=== PATIENT | female | born 1965 | race Caucasian/White ===

== ENCOUNTER 2017-10-23 14:30 | Emergency (ER) | payer OTHER ==
[2017-10-23 15:14] VITALS: BP 121/67; PULSE 90; TEMP 98.5; BMI 49.2
--- NOTE | 2017-10-23 15:29 | PDOC ---
History of Present Illness - General Chief Complaint: Abscess Boil Stated Complaint: RT ARM PAIN Time Seen by Provider: 10/23/17 15:18 History Source: Patient Exam Limitations: No Limitations - History of Present Illness Initial Comments: CHIEF COMPLAINT: 52 y/o afebrile female with no significant PMH c/o pain and swelling to right underarm x 1 week. HISTORY OF PRESENT ILLNESS: The patient states she shaved her armpits prior to the swelling and pain. She has been applying hot compresses and taking ibuprofen for her symptoms. SHe denies fever, streaking drainage from wound. Past History - Past Medical History Allergies/Adverse Reactions: Allergies Allergy/AdvReac Type Severity Reaction Status Date / Time No Known Allergies Allergy Verified 10/23/17 15:13 Home Medications: Ambulatory Orders Cephalexin Monohydrate [Keflex -] 500 mg PO Q8H #24 capsule 10/23/17 Sulfamethoxazole/Trimethoprim [Bactrim Ds -] 1 tab PO BID #20 tablet 10/23/17 Asthma: Yes COPD: No - Surgical History Cholecystectomy: Yes GI Surgery: Yes (GASTRIC BYPASS) - Family Disease History Family Disease History: Diabetes: Father, Mother - Suicide/Smoking/Psychosocial Hx Smoking History: Never smoked Hx Alcohol Use: No Substance Use Type: None Review of Systems - Review of Systems Able to Perform ROS?: Yes Constitutional: No: Chills, Fever HEENTM: No: Symptoms Reported Respiratory: No: Symptoms reported Cardiac (ROS): No: Symptoms Reported Integumentary: Yes: Erythema, Lumps, Other (pain) Neurological: No: Symptoms reported *Physical Exam - Vital Signs Last Vital Signs Temp Pulse Resp BP Pulse Ox 98.5 F 90 18 121/67 98 10/23/17 15:11 10/23/17 15:11 10/23/17 15:11 10/23/17 15:11 10/23/17 15:11 - Physical Exam Comments: Morbidly obese, ambulatory female in NAD. General Appearance: Yes: Nourished, Appropriately Dressed. No: Apparent Distress HEENT: positive: EOMI, PERCY Musculoskeletal: positive: Decreased Range of Motion, Muscle Spasm Extremity: positive: Normal Range of Motion, Swelling (right axilla) Integumentary: positive: Erythema, Swelling, Other (6cm long raised area of erythema to right axilla that is very TTP. another raised, erythematous region that is 1cm long. both areas are non fluctuant. No discharge.) Neurologic: positive: access spec II-XII NML intact, Fully Oriented, Alert, Normal Mood/ Affect Medical Decision Making - Medical Decision Making A/P: 52 y/o afebrile female with abscess to right axilla. No fluctuance. Will discharge to home with rx for keflex and bactrim. Instructed her to continue with hot compresses, take antibiotics as prescribed, take 600mg of ibuprofen every 6 hours for pain and return to the ER with any worsening or concerning symptoms. *DC/Admit/Observation/Transfer Diagnosis at time of Disposition: Abscess of arm, right - Discharge Dispostion Disposition: HOME Condition at time of disposition: Good - Referrals - Patient Instructions Printed Discharge Instructions: DI for Skin Abscess Additional Instructions: Discharge INstructions: -Continue applying hot compresses multiple times per day -2 prescriptions for antibiotics have been sent to your pharmacy; please take as prescribed -Take 600mg of ibuprofen every 6 hours with food for pain -Return to the ER with any worsening or concerning symptoms - Post Discharge Activity
== END 2017-10-23 15:35 | disposition home or self-care (01) ==
LOC: JER 14:30 → JERFT 14:30
DX: L02.411 Cutaneous abscess of right axilla (principal)
CPT/HCPCS: 99281-25

== ENCOUNTER 2017-11-05 09:37 | Observation (INO) | payer OTHER ==
[2017-11-05 09:55] VITALS: BMI 48.0
--- NOTE | 2017-11-05 10:23 | PDOC ---
History of Present Illness - General Chief Complaint: Chest Pain Stated Complaint: CHEST PAIN Time Seen by Provider: 11/05/17 09:55 History Source: Patient Exam Limitations: No Limitations - History of Present Illness Initial Comments: 11/05/17 10:17 52 yo obese (48 BMI) female, PMH of asthma and recent right arm abscess, currently taking antibiotics presents to ED for a 4 day history of chest pain. No previous cardiac workup, no history of DVT/PE. Patient states for the past 4 nights she has had intermittent chest pain which subsides after sitting up for 1 hour in bed but this morning the pain has not subsided. Pain is described as tightness with associated left arm numbness and SOB with the pain. Pt denies exertional chest pain, back pain, n/v/f/c abdominal pain or changes in bowel or bladder habits. Past History - Past Medical History Allergies/Adverse Reactions: Allergies Allergy/AdvReac Type Severity Reaction Status Date / Time No Known Allergies Allergy Verified 11/05/17 09:50 Home Medications: Ambulatory Orders Cephalexin Monohydrate [Keflex -] 500 mg PO Q8H #24 capsule 10/23/17 Sulfamethoxazole/Trimethoprim [Bactrim Ds -] 1 tab PO BID #20 tablet 10/23/17 Albuterol Sulfate Inhaler - [Ventolin Hfa Inhaler -] 1 - 2 inh PO PRN 11/05/17 Asthma: Yes COPD: No - Surgical History Cholecystectomy: Yes GI Surgery: Yes (GASTRIC BYPASS) - Family Disease History Family Disease History: Diabetes: Father, Mother - Immunization History Immunization Up to Date: Yes - Suicide/Smoking/Psychosocial Hx Smoking History: Never smoked Have you smoked in the past 12 months: No Information on smoking cessation initiated: No Hx Alcohol Use: No Drug/Substance Use Hx: No Substance Use Type: None Review of Systems - Review of Systems Able to Perform ROS?: Yes Constitutional: No: Chills, Diaphoresis, Fever, Weakness *Physical Exam - Vital Signs Last Vital Signs Temp Pulse Resp BP Pulse Ox 98.0 F 77 17 153/82 96 11/05/17 09:51 11/05/17 09:51 11/05/17 09:51 11/05/17 09:51 11/05/17 09:51 Heart Score/ECG Review - History History: Highly suspicious - Age Age: 45-65 - Risk Factors Risk Factors Heart Score: No Hx Hypercholesterolemia, No Hx Hypertension, No Hx Diabetes, No Smoking History, Yes Positive family hx of cardiac disease, Yes Hx Obesity Medical Decision Making - Medical Decision Making 52 yo obese female with a positive family history of atherosclerotic disease presents to ED for 4 days of intermittent CP and SOB. Pain is described as tightness and has associated left arm numbness. Exam positive for bilateral lower leg swelling and pitting of the left lower leg. DDx includes but is not limited to: ACS, PE, Pnemo. CBC, CMP, cardiac profile, EKG, CXR, and left leg ultrasound ordered Given 161 of aspirin 11/05/17 10:35 heart score of 4 currently due to high suspicion, obesity, family hx and age. reassess after EKG and trops are done 11/05/17 10:50 Pt resting comfortably and pain is decreasing. Plan to admit to Tele obs 11/05/17 11:11 11/05/17 11:32 *DC/Admit/Observation/Transfer Diagnosis at time of Disposition: Chest pain Qualifiers: Chest pain type: unspecified Qualified Code(s): R07.9 - Chest pain, unspecified - Discharge Dispostion Condition at time of disposition: Stable Decision to Admit order: Yes - Referrals - Patient Instructions - Post Discharge Activity
[2017-11-05 10:40] LABS: BASO % 0.8 % (0-2.0); EOS % 4.4 % (0-4.5); HEMATOCRIT 36.5 % (32.4-45.2); HEMOGLOBIN 11.6 GM/dL (10.7-15.3); LYMPH % 22.7 % (8-40); MCH 22.6 pg (25.7-33.7); MCHC 31.8 g/dl (32.0-36.0); MEAN PLT VOLUME 10.3 fl (7.5-11.1); NEUT % 67.1 % (42.8-82.8); PLATELET COUNT 201 K/MM3 (134-434); RBC 5.14 M/mm3 (3.60-5.2); RDW 19.3 % (11.6-15.6); WHITE BLOOD COUNT 6.5 K/mm3 (4.0-10.0)
--- NOTE | 2017-11-05 10:43 | PDOC ---
Attending Attestation - Resident Resident Name: ChikisCedric - ED Attending Attestation I have performed the following: I have examined & evaluated the patient, The case was reviewed & discussed with the resident, I agree w/resident's findings & plan, Exceptions are as noted - Physicial Exam PE: 11/05/17 10:41 awake alert NAD. lungs clear bilaterally. heart rrr no mrg. abd soft obese nontender. ext wwp. bilaterally edema. left greater than right. pitting on left. nuero alert oriented x 3. skin warm and dry. right axilla small indurated area 1. x 1 cm. no overlying erythema. no fluctuance. - Medical Decision Making 11/05/17 10:42 differential diagnosis angina, acs. gerd from abx use. dvt considered. will repeat us pt has had in past of left leg. labs cbc cmp cardiac. ekg. asa. <Samia Alexander - Last Filed: 11/05/17 11:31> - HPI HPI: 11/05/17 10:55 The patient is a 52 year old female with a past medical history of recent right arm abscess and asthma who presents to the emergency department for evaluation of a 4 day history of chest pain and shortness of breath. 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 She describes the chest pain as a pressure-like sensation, intermittent, localized to the left side. Pt states her chest tightness is usually alleviated by sitting up, but notes this episode lasted more than an hour prompting her to visit the emergency department for further evaluation. The patient reports associated symptoms of left side paresthesia radiating to the hand and left leg edema. Pt reports a history of bilateral lower extremity edema. Of note, the patient has an extensive family cardiac history. The patient denies history of PE or DVT, previous cardiac workup, history of blood clots, headaches, and dizziness. Denies F/C, N/V, and any bowel/urinary symptoms. Allergies: NKDA Family History: Mother had 2 aortic valve replacements, uncle had quadruple bypass, and the grandmother passed in her 50s secondary to an AMI. Social History: No reported alcohol, cigarette, or drug use. Surgical History: gastric bypass, cholecystectomy PCP: Dr. Eugenie Singh ([phone]) <Terell Roche - Last Filed: 11/05/17 11:47> Heart Score/ECG Review #1 General ECG Interpretation: Sinus Rhythm, Normal Rate (77), Normal Intervals, No acute ischemic changes <Samia Alexander - Last Filed: 11/05/17 11:31> Attestations - Attestations Documentation prepared by Terell Roche, acting as medical laboratory manager for Samia Alexander MD. <Terell Roche - Last Filed: 11/05/17 11:47>
[2017-11-05] MEDS ORDERED: ASPIRIN 81 MG CHEWABLE TABLETS ONE (11:06)
[2017-11-05 11:11] LABS: ALBUMIN 3.3 g/dl (3.4-5.0); ANION GAP 5 (8-16); BILIRUBIN,TOTAL 0.3 mg/dL (0.2-1.0); BLOOD UREA NITROGEN 9 mg/dL (7-18); CALCIUM 8.7 mg/dL (8.5-10.1); CHLORIDE 105 mmol/L (98-107); CO2 30 mmol/L (21-32); CREATININE 0.7 mg/dL (0.55-1.02); GLUCOSE,RANDOM 88 mg/dL (74-106); POTASSIUM 4.9 mmol/L (3.5-5.1); SGOT/AST 23 U/L (15-37); SGPT/ALT 25 U/L (12-78); SODIUM 140 mmol/L (136-145)
[2017-11-05 11:14] LABS: ALK PHOS 114 U/L (45-117)
[2017-11-05] MEDS: ASPIRIN 81 MG CHEWABLE TABLETS PO SCH (11:22)
--- NOTE | 2017-11-05 12:51 | HP ---
CHIEF COMPLAINT: chest pain PCP: Dr. Singh HISTORY OF PRESENT ILLNESS: This is a 52 year old female with PMHx of asthma who presented to the ED with 4 days of chest pain. The patient reports that 4 days ago in the middle of the night she was woken up with left sided, non-radiating chest pain which she describes as someone hugging her tightly. She states it didn't last long and then it happened again the next few nights. She reports this morning at 2am the pain work up her and it lasted longer than usual which prompted her to come to the ED. She denies any cough, shortness of breath, nausea, vomiting, diarrhea, urinary symptoms, dizziness, syncope. The patient reports she has had lower extremity edema that comes and goes for years. ER course was notable for: (1) Temp 98, pulse 77, BP 153/82, resp 17, O2 96% on RA (2) Chest X-ray with no active pulmonary disease (3) B/l lower extremity doppler negative for DVT Recent Travel: denies PAST MEDICAL HISTORY: as above PAST SURGICAL HISTORY: cholecystectomy 7 years ago, gastric bypass 15 years ago Social History: Smoking: denies Alcohol: denies Drugs: denies Family History: Allergies No Known Allergies Allergy (Verified 11/05/17 09:50) HOME MEDICATIONS: Home Medications Medication Instructions Recorded Cephalexin Monohydrate [Keflex -] 500 mg PO Q8H #24 capsule 10/23/17 Sulfamethoxazole/Trimethoprim 1 tab PO BID #20 tablet 10/23/17 [Bactrim Ds -] Albuterol Sulfate Inhaler - 1 - 2 inh PO PRN 11/05/17 [Ventolin Hfa Inhaler -] REVIEW OF SYSTEMS CONSTITUTIONAL: Absent: fever, chills, diaphoresis, generalized weakness, malaise, loss of appetite, weight change HEENT: Absent: rhinorrhea, nasal congestion, throat pain, throat swelling, difficulty swallowing, mouth swelling, ear pain, eye pain, visual changes CARDIOVASCULAR: chest pain that began 4 days ago as above. Absent: syncope, palpitations, irregular heart rate, lightheadedness, peripheral edema RESPIRATORY: Absent: cough, shortness of breath, dyspnea with exertion, orthopnea, wheezing, stridor, hemoptysis GASTROINTESTINAL: Absent: abdominal pain, abdominal distension, nausea, vomiting, diarrhea, constipation, melena, hematochezia GENITOURINARY: Absent: dysuria, frequency, urgency, hesitancy, hematuria, flank pain, genital pain MUSCULOSKELETAL: Absent: myalgia, arthralgia, joint swelling, back pain, neck pain SKIN: Absent: rash, itching, pallor HEMATOLOGIC/IMMUNOLOGIC: Absent: easy bleeding, easy bruising, lymphadenopathy, frequent infections ENDOCRINE: Absent: unexplained weight gain, unexplained weight loss, heat intolerance, cold intolerance NEUROLOGIC: Absent: headache, focal weakness or paresthesias, dizziness, unsteady gait, seizure, mental status changes, bladder or bowel incontinence PSYCHIATRIC: Absent: anxiety, depression, suicidal or homicidal ideation, hallucinations. PHYSICAL EXAMINATION Vital Signs - 24 hr 11/05/17 11/05/17 11/05/17 09:51 10:31 10:50 Temperature 98.0 F Pulse Rate 77 Pulse Rate [ 70 Left Radial] Respiratory 17 14 Rate Blood Pressure 153/82 Blood Pressure 121/75 [Right Arm] O2 Sat by Pulse 96 98 97 Oximetry (%) 11/05/17 12:37 Temperature Pulse Rate Pulse Rate [ 68 Left Radial] Respiratory 18 Rate Blood Pressure Blood Pressure 127/78 [Right Arm] O2 Sat by Pulse 97 Oximetry (%) GENERAL: Morbid obesity. Awake, alert, and fully oriented, in no acute distress. HEAD: Normal with no signs of trauma. EYES: Pupils equal, round and reactive to light, extraocular movements intact, sclera anicteric, conjunctiva clear. No lid lag. EARS, NOSE, THROAT: Ears normal, nares patent, oropharynx clear without exudates. Moist mucous membranes. NECK: Normal range of motion, supple without lymphadenopathy, JVD, or masses. LUNGS: Breath sounds equal, clear to auscultation bilaterally. No wheezes, and no crackles. No accessory muscle use. HEART: Regular rate and rhythm, normal S1 and S2 without murmur, rub or gallop. ABDOMEN: Soft, nontender, not distended, normoactive bowel sounds, no guarding, no rebound, no masses. No hepatomegaly or splenomegaly. MUSCULOSKELETAL: Normal range of motion at all joints. No bony deformities or tenderness. No CVA tenderness. UPPER EXTREMITIES: 2+ pulses, warm, well-perfused. No cyanosis. No clubbing. No peripheral edema. LOWER EXTREMITIES: B/l lower extremity 1+ pitting edema. 2+ pulses, warm, well- perfused. No calf tenderness. NEUROLOGICAL: Cranial nerves II-XII intact. Normal speech. Normal gait. PSYCHIATRIC: Cooperative. Good eye contact. Appropriate mood and affect. SKIN: Warm, dry, normal turgor, no rashes or lesions noted, normal capillary refill. Laboratory Results - last 24 hr 11/05/17 11/05/17 10:30 10:30 WBC 6.5 RBC 5.14 Hgb 11.6 Hct 36.5 MCV 71.0 L MCH 22.6 L MCHC 31.8 L RDW 19.3 H Plt Count 201 MPV 10.3 Absolute Neuts (auto) 4.4 Neutrophils % 67.1 Lymphocytes % 22.7 Monocytes % 5.0 Eosinophils % 4.4 Basophils % 0.8 Nucleated RBC % 0 Sodium 140 Potassium 4.9 Chloride 105 Carbon Dioxide 30 Anion Gap 5 L BUN 9 Creatinine 0.7 Creat Clearance w eGFR > 60 Random Glucose 88 Calcium 8.7 Total Bilirubin 0.3 AST 23 ALT 25 Alkaline Phosphatase 114 Creatine Kinase 113 Troponin I < 0.02 Total Protein 7.0 Albumin 3.3 L Assessment: This is a 52 year old female with PMHx of asthma who presented to the ED with 4 days of chest pain. Plan: 1) Chest pain - R/o ACS - EKG reviewed - F/u ECHO - F/u TSH, lipid panel, HgbA1c - Cardiac monitoring - F/u cardiology consult 2) Lower extremity swelling - B/l lower extremity doppler negative for DVT - F/u BNP - F/u ECHO to assess LV function 3) Asthma - No evidence of active exacerbation at this time - Albuterol nebs prn 4) F/E/N: - Monitor electrolytes - Regular diet 5) Prophylaxis: - SCDs bilaterally - OOB ambulating 6) Dispo: - Once condition improves CODE STATUS: FULL CODE Visit type - Emergency Visit Emergency Visit: Yes ED Registration Date: 11/05/17 Care time: The patient presented to the Emergency Department on the above date and was hospitalized for further evaluation of their emergent condition. - New Patient This patient is new to me today: Yes Date on this admission: 11/05/17 - Critical Care Critical Care patient: No Hospitalist Screening - Colonoscopy Questionnaire Colonoscopy Questionnaire: Colonoscopy Questionnaire - Patient: 50 - 75 years old and never had a screening colonoscopy: No History of colon or rectal polyps, or CA: Unknown History of IBD, Crohn's disease or UC: Unknown History of abdominal radiation therapy as a child: Unknown - Relative: 1 with colon or rectal CA, or polyps at age 60 or younger: Unknown Colon or rectal CA diagnosed at age 45 or younger: Unknown Multiple relatives with colon or rectal CA: Unknown - Outcome: Screening Result: Negative Screen
[2017-11-05] MEDS ORDERED: ALBUTEROL SO4 0.083% IH SOL 2.5 MG/3 ML VIAL.NEB. NEB PRN (13:22)
[2017-11-05 15:16] LABS: CHOLESTEROL 176 mg/dL (50-200); HDL CHOLESTEROL 33 mg/dL (40-60); TRIGLYCERIDES 199 mg/dL (35-160)
[2017-11-05 15:23] LABS: N-TERMINAL BNP 60.84 pg/ml (5-125)
[2017-11-05] MEDS ORDERED: ACETAMINOPHEN 325 MG TABLET (FP) PO ONE (17:00)
[2017-11-06] MEDS ORDERED: ACETAMINOPHEN 325 MG TABLET (FP) PO ONE (01:01)
[2017-11-06] MEDS ORDERED: ACETAMINOPHEN 325 MG TABLET (FP) ONE (01:09)
[2017-11-06 07:49] LABS: BASO % 0.8 % (0-2.0); EOS % 5.5 % (0-4.5); HEMATOCRIT 36.1 % (32.4-45.2); HEMOGLOBIN 11.3 GM/dL (10.7-15.3); LYMPH % 27.9 % (8-40); MCH 22.4 pg (25.7-33.7); MCHC 31.1 g/dl (32.0-36.0); MEAN CELL VOLUME 72.1 fl (80-96); MEAN PLT VOLUME 9.9 fl (7.5-11.1); MONO % 5.3 % (3.8-10.2); NEUT % 60.5 % (42.8-82.8); RBC 5.02 M/mm3 (3.60-5.2); WHITE BLOOD COUNT 5.4 K/mm3 (4.0-10.0)
[2017-11-06 08:27] LABS: CALCIUM 8.7 mg/dL (8.5-10.1); CHLORIDE 103 mmol/L (98-107); POTASSIUM 4.6 mmol/L (3.5-5.1); SODIUM 140 mmol/L (136-145)
[2017-11-06 08:33] LABS: ALBUMIN 3.2 g/dl (3.4-5.0); ALK PHOS 110 U/L (45-117); ANION GAP 5 (8-16); BILIRUBIN,TOTAL 0.3 mg/dL (0.2-1.0); BLOOD UREA NITROGEN 11 mg/dL (7-18); CO2 32 mmol/L (21-32); CREATININE 0.6 mg/dL (0.55-1.02); GLUCOSE,RANDOM 93 mg/dL (74-106); MAGNESIUM 2.4 mg/dL (1.8-2.4); PHOSPHOROUS 4.3 mg/dL (2.5-4.9); SGOT/AST 19 U/L (15-37); SGPT/ALT 25 U/L (12-78); TOT PROT 6.8 g/dl (6.4-8.2)
[2017-11-06 08:51] LABS: PLATELET COUNT 189 K/MM3 (134-434); PLATELET ESTIMATE ADEQUATE
[2017-11-06] MEDS: ASPIRIN 81 MG CHEWABLE TABLETS PO SCH (09:03)
--- NOTE | 2017-11-06 11:12 | CONSULT ---
Consult Consult Specialty:: Cardiology (Dr Malhotra covering Dr. Love) Referred by:: Medicine Reason for Consultation:: Chest pain - History of Present Illness Chief Complaint: Chest pain History of Present Illness: 52 yo female No history of DM, HTN, Hyperlipidemia, no tobacco use, no h/o AK/CVA No known CV history and no prior CV evaluation Now with atypical chest pains for 4 days Occurs at night and awakes her from sleep Located on left side, described as severe, pressure No exertional symptoms Troponin negative x 2 and ECG normal at 09:49 on 11/05/2017 - History Source History Provided By: Patient Limitations to Obtaining History: No Limitations - Past Medical History ...LMP Comment: patient does not get her period ...: No - Alcohol/Substance Use Hx Alcohol Use: No - Smoking History Smoking history: Never smoked Have you smoked in the past 12 months: No Home Medications - Allergies Allergies/Adverse Reactions: Allergies Allergy/AdvReac Type Severity Reaction Status Date / Time No Known Allergies Allergy Verified 11/05/17 09:50 - Home Medications Home Medications: Ambulatory Orders Albuterol Sulfate Inhaler - [Ventolin Hfa Inhaler -] 1 - 2 inh PO PRN 11/05/17 Family Disease History - Family Disease History Family History: Unremarkable (No family h/o CAD) Review of Systems - Review of Systems Constitutional: denies: No Symptoms, Chills, Diaphoresis, Fever, Lethargy, Loss of Appetite, Malaise, Night Sweats, Unintentional Wgt. Loss, Weakness, Other Eyes: denies: No Symptoms, Blind Spots, Blurred Vision, Double Vision, Eye Pain , Floaters, Photophobia, Recent Change in Vision, Other HENT: denies: No Symptoms, Difficult Swallowing, Ear Discharge, Ear Pain, Epistaxis, Gingival Bleeding, Hearing Loss, Mouth Swelling, Nasal Congestion, Ocular Prosthesis, Throat Pain, Toothache, Ringing in Ears, Other Neck: denies: No Symptoms, Decreased ROM, Lumps, Pain on Movement, Stiffness, Swollen Glands, Tenderness, Other Cardiovascular: reports: Chest Pain, Edema Respiratory: denies: No Symptoms, Cough, Exercise Intolerance, Hemoptysis, Orthopnea, PND, Snoring, SOB, SOB on Exertion, Wheezing, Other Gastrointestinal: denies: No Symptoms, Abdominal Pain, Bloating, Constipation, Diarrhea, Dysphagia, Indigestion, Melena, Nausea, Rectal Bleeding, Vomiting, Vomiting Blood, Other Musculoskeletal: denies: No Symptoms, Back Pain, Crepitus, Decreased ROM, Extremity Pain, Joint Pain, Joint Swelling, Muscle Pain, Muscle Cramps, Muscle Weakness, Other Integumentary: denies: No Symptoms, Blister, Bruising, Change in Color, Eczema, Erythema, Incision, Lesions, Lump, Pallor, Pruritis, Rash, Wound, Other Neurological: denies: No Symptoms, Change in LOC, Change in Speech, Confusion, Dizziness, Headache, Incoordination, Numbness, Parasthesia, Pre-Existing Deficit , Seizure, Syncope, Tremors, Unsteady Gait, Weakness, Other Physical Exam Vital Signs: Vital Signs Temperature 98.0 F 11/06/17 07:49 Pulse Rate 91 H 11/06/17 07:49 Respiratory Rate 20 11/06/17 07:49 Blood Pressure 114/72 11/06/17 07:49 O2 Sat by Pulse Oximetry (%) 97 11/06/17 07:42 Constitutional: Yes: Well Nourished, No Distress, Calm Eyes: Yes: WNL HENT: Yes: WNL Neck: Yes: WNL Cardiovascular: Yes: Regular Rate and Rhythm Respiratory: Yes: CTA Bilaterally Gastrointestinal: Yes: Normal Bowel Sounds Musculoskeletal: Yes: WNL Extremities: Yes: WNL Edema: Yes Edema: LLE: 1+, RLE: 1+ Labs: CBC, BMP 11/06/17 05:50 11/06/17 05:50 Imaging - Results EKG: Image Reviewed (ECG at 11/05/2017 at 09:49 NSR at 77/min. No acute ST changes.) Assessment/Plan 52 yo No CV risk factors Atypical chest pain Normal ECG Stress test could be done as outpatient, but patient wants to stay for testing. Echo ordered but will likely be normal
--- NOTE | 2017-11-06 14:00 | PN ---
Progress Note (short form) - Note Progress Note: Subjective: The patient was seen and examined at the bedside, she reports mild complaints of chest pain overnight which have since resolved For ECHO and stress test tomorrow Current Medications Generic Name Dose Route Start Last Admin Trade Name [place]ieve PRN Reason Stop Dose Admin Albuterol Sulfate 1 amp 11/05/17 13:22 Ventolin 0.083% Nebulizer Soln - NEB Q4H PRN SHORT OF BREATH/WHEEZING Aspirin 162 mg 11/05/17 10:45 11/06/17 09:03 Asa - PO 162 mg DAILY SARA Administration Objective: Vital Signs Period Temp Pulse Resp BP Sys/Leger Pulse Ox Last 24 Hr 97.8 F-98.3 F 66-91 18-20 107-121/55-86 97-97 Physical Exam: General: NAD CBCD WBC 5.4 K/mm3 (4.0-10.0) 11/06/17 05:50 RBC 5.02 M/mm3 (3.60-5.2) 11/06/17 05:50 Hgb 11.3 GM/dL (10.7-15.3) 11/06/17 05:50 Hct 36.1 % (32.4-45.2) 11/06/17 05:50 MCV 72.1 fl (80-96) L 11/06/17 05:50 MCHC 31.1 g/dl (32.0-36.0) L 11/06/17 05:50 RDW 19.0 % (11.6-15.6) H 11/06/17 05:50 Plt Count 189 K/MM3 (134-434) 11/06/17 05:50 MPV 9.9 fl (7.5-11.1) 11/06/17 05:50 CMP Sodium 140 mmol/L (136-145) 11/06/17 05:50 Potassium 4.6 mmol/L (3.5-5.1) 11/06/17 05:50 Chloride 103 mmol/L (98-107) 11/06/17 05:50 Carbon Dioxide 32 mmol/L (21-32) 11/06/17 05:50 Anion Gap 5 (8-16) L 11/06/17 05:50 BUN 11 mg/dL (7-18) 11/06/17 05:50 Creatinine 0.6 mg/dL (0.55-1.02) 11/06/17 05:50 Creat Clearance w eGFR > 60 (>60) 11/06/17 05:50 Random Glucose 93 mg/dL (74-106) 11/06/17 05:50 Calcium 8.7 mg/dL (8.5-10.1) 11/06/17 05:50 Total Bilirubin 0.3 mg/dL (0.2-1.0) 11/06/17 05:50 AST 19 U/L (15-37) 11/06/17 05:50 ALT 25 U/L (12-78) 11/06/17 05:50 Alkaline Phosphatase 110 U/L (45-117) 11/06/17 05:50 Total Protein 6.8 g/dl (6.4-8.2) 11/06/17 05:50 Albumin 3.2 g/dl (3.4-5.0) L 11/06/17 05:50 CARDIAC ENZYMES Creatine Kinase 75 IU/L (26-192) 11/06/17 10:55 Troponin I < 0.02 ng/ml (0.00-0.05) 11/06/17 10:55 Assessment: This is a 52 year old female with PMHx of asthma who presented to the ED with 4 days of chest pain. Plan: 1) Chest pain - Trop x3 negative - EKG reviewed - F/u ECHO - TSH wnl - HgbA1c 6 - Lipid panel reviewed - Cardiac monitoring - Appreciate cardiology consult 2) Lower extremity swelling - B/l lower extremity doppler negative for DVT - BNP wnl - F/u ECHO to assess LV function 3) Asthma - No evidence of active exacerbation at this time - Albuterol nebs prn 4) F/E/N: - Monitor electrolytes - Regular diet, NPO after midnight for stress test 5) Prophylaxis: - SCDs bilaterally - OOB ambulating 6) Dispo: - Once condition improves CODE STATUS: FULL CODE Visit type - Emergency Visit Emergency Visit: Yes ED Registration Date: 11/05/17 Care time: The patient presented to the Emergency Department on the above date and was hospitalized for further evaluation of their emergent condition. - New Patient This patient is new to me today: No - Critical Care Critical Care patient: No
--- NOTE | 2017-11-06 15:19 | EKG ---
Test Reason : Blood Pressure : / mmHG Vent. Rate : 077 BPM Atrial Rate : 077 BPM P-R Int : 170 ms QRS Dur : 084 ms QT Int : 362 ms P-R-T Axes : 045 000 006 degrees QTc Int : 409 ms NORMAL SINUS RHYTHM NORMAL ECG NO PREVIOUS ECGS AVAILABLE Confirmed by TONY RANKIN, CHICO ([id number]) on 11/06/2017 3:18:48 PM Referred By: Confirmed By:CHICO JIMENEZ MD
--- NOTE | 2017-11-07 11:57 | ECHO ---
Name: LAY ANDREWS Exam:Adult Echocardiogram Study Date: 11/07/2017 07:59 AM Age: 52 yrs Reason For Study: LV Function Height: 64 in Weight: 280 lb BSA: 2.3 m2 MMode/2D Measurements & Calculations IVSd: 1.3 cm Ao root diam: 2.8 cm LVIDd: 4.2 cm LA dimension: 3.8 cm LVIDs: 2.3 cm LVPWd: 1.2 cm EDV(Teich): 76.8 ml ESV(Teich): 17.2 ml Doppler Measurements & Calculations MV E max julisa: 81.5 cm/sec Med Peak E' Julisa: 7.3 cm/sec MV A max julisa: 76.2 cm/sec Med E/e': 11.2 MV E/A: 1.1 Lat Peak E' Julisa: 7.9 cm/sec MV dec time: 0.39 sec Lat E/e': 10.3 Procedure A two-dimensional transthoracic echocardiogram with color flow and Doppler was performed. The study w as technically difficult with many images being suboptimal in quality. Left Ventricle The left ventricular size, thickness and function are normal. The left ventricular ejection fraction is normal. Left Ventricular Filling pattern is normal for age. Regional wall motion abnormalities cannot be excluded due to limited visualization. Right Ventricle The right ventricle is not well visualized. Atria Normal left and right atrial size and function. Mitral Valve The mitral valve is not well visualized. There is no mitral valve stenosis. There is trace to mild mi tral regurgitation. Tricuspid Valve The tricuspid valve is not well visualized. There is no tricuspid stenosis. There was insufficient TR detected to calculate RV systolic pressure. Aortic Valve The aortic valve is normal in structure and function. No hemodynamically significant valvular aortic stenosis. No aortic regurgitation is present. Pulmonic Valve The pulmonic valve is not well visualized. There is no pulmonic valvular stenosis. There is no pulmon ic valvular regurgitation. Great Vessels The aortic root is normal size. Pericardium/Pleura There is no pericardial effusion. Interpretation Summary The left ventricular size, thickness and function are normal The left ventricular ejection fraction is normal. The study was technically difficult with many images being suboptimal in quality. Regional wall motion abnormalities cannot be excluded due to limited visualization. Left Ventricular Filling pattern is normal for age. There is trace to mild mitral regurgitation. There was insufficient TR detected to calculate RV systolic pressure. MD Levi Miller 11/07/2017 11:56 AM
[2017-11-07] MEDS: ASPIRIN 81 MG CHEWABLE TABLETS PO SCH (14:09)
--- NOTE | 2017-11-07 14:11 | PN ---
Progress Note (short form) - Note Progress Note: S: no complaints today O: Current Medications Generic Name Dose Route Start Last Admin Trade Name Freq PRN Reason Stop Dose Admin Albuterol Sulfate 1 amp 11/05/17 13:22 Ventolin 0.083% Nebulizer Soln - NEB Q4H PRN SHORT OF BREATH/WHEEZING Aspirin 162 mg 11/05/17 10:45 11/06/17 09:03 Asa - PO 162 mg DAILY SARA Administration Vital Signs: Vital Signs Period Temp Pulse Resp BP Sys/Leger Pulse Ox Last 24 Hr 97.4 F-98.4 F 68-89 20-20 113-139/68-76 98 Constitutional: Yes: Well Nourished, No Distress, Calm Eyes: Yes: WNL HENT: Yes: WNL Neck: Yes: WNL Cardiovascular: Yes: Regular Rate and Rhythm Respiratory: Yes: CTA Bilaterally Gastrointestinal: Yes: Normal Bowel Sounds Musculoskeletal: Yes: WNL Extremities: Yes: WNL Edema: Yes Edema: LLE: 1+, RLE: 1+ Imaging - Results EKG: Image Reviewed (ECG at 11/05/2017 at 09:49 NSR at 77/min. No acute ST changes.) Echocardiogram 11/07/17 tds, normal LV function, trace to mild MR nuclear exercise stress test 11/07/17 asymptomatic, target HR in stage I, 4.6 mets. imaging with small size, mild intensity anteroapical reversible perfusion defect Assessment/Plan 52 yo p/w atypical chest pain - echo unremarkable - nuclear stress test showed small, mild area of ischemia, asymptomatic during testing - would defer invasive testing, start aspirin 81 mg daily and atorvastatin 10 mg daily - no further inpatient work up, okay for dc from cardiology perspective - outpatient follow up in 2-4 weeks
--- NOTE | 2017-11-07 15:33 | DS ---
Physical Examination Vital Signs: Vital Signs Temperature 97.4 F L 11/06/17 20:35 Pulse Rate 75 11/07/17 10:00 Respiratory Rate 20 11/07/17 10:00 Blood Pressure 133/70 11/07/17 10:00 O2 Sat by Pulse Oximetry (%) 98 11/06/17 20:35 Labs: CBC, BMP 11/06/17 05:50 11/06/17 05:50 Discharge Summary Reason For Visit: CHEST PAIN Current Active Problems Chest pain (Acute) Condition: Improved - Instructions Diet, Activity, Other Instructions: Please return to the ED with new, persistent, or worsening symptoms. Please follow-up with providers as indicated. Referrals: Tim Kern MD [Staff Physician] - 1 Week Rustam Love MD [Staff Physician] - (Please follow-up with cardiology within 2 weeks for further oupatient cardiac workup.) Disposition: HOME - Home Medications Comprehensive Discharge Medication List: Ambulatory Orders Albuterol Sulfate Inhaler - [Ventolin HFA Inhaler -] 1 - 2 inh PO PRN 11/05/17 Aspirin [ASA -] 162 mg PO DAILY #30 tab.chew 11/07/17 Atorvastatin Ca [Lipitor] 10 mg PO HS #30 tablet 11/07/17
[2017-11-07 15:36] VITALS: BP 129/76; PULSE 86; TEMP 97.5
[2017-11-07] MEDS ORDERED: ATORVASTATIN CA 10 MG TABLET (FP) PO SCH (22:00)
== END 2017-11-07 18:43 | disposition home or self-care (01) ==
LOC: JER 09:37 → JERBED 11:41 → J4W 13:45
PROVIDERS: ADMIT Internal Medicine; ATTEND Registered Nurse
DX: R07.9 Chest pain, unspecified (principal); R22.40 Localized swelling, mass and lump, unspecified lower limb; J45.909 Unspecified asthma, uncomplicated
CPT/HCPCS: 36415; 71045-TC-FY; 78452-TC; 80053; 80061; 82550; 83036; 83721; 83735; 83880; 84100; 84443; 84484; 85025; 93005; 93010; 93017; 93306-TC; 93970-TC; 99284-25; A9502; G0378

== ENCOUNTER 2019-11-27 08:55 | Emergency (ER) | payer SELFPAY ==
[2019-11-27 09:01] VITALS: BP 122/67; PULSE 74; TEMP 98.4; BMI 44.4
[2019-11-27] MEDS ORDERED: LORATADINE 10 MG TABLET PO ONE (09:09)
[2019-11-27] MEDS ORDERED: LORATADINE 10 MG TABLET ONE (09:10)
--- NOTE | 2019-11-27 09:14 | PDOC ---
History of Present Illness - General Chief Complaint: Eye Problem Stated Complaint: EYE INFE Time Seen by Provider: 11/27/19 09:04 History Source: Patient - History of Present Illness Timing/Duration: other Past History - Medical History Allergies/Adverse Reactions: Allergies Allergy/AdvReac Type Severity Reaction Status Date / Time No Known Allergies Allergy Verified 11/05/17 09:50 Home Medications: Ambulatory Orders Albuterol Sulfate Inhaler - [Ventolin HFA Inhaler -] 1 - 2 inh PO PRN 11/05/17 Aspirin [ASA -] 162 mg PO DAILY #30 tab.chew 11/07/17 Atorvastatin Ca [Lipitor] 10 mg PO HS #30 tablet 11/07/17 Meloxicam DAILY 04/24/18 Vitamin D3 50,000 iu WEEKLY 04/24/18 Cyclobenzaprine HCl [Flexeril 10 mg] 10 mg PO HS PRN #10 tablet 08/15/19 Anemia: Yes Asthma: Yes Cancer: No Cardiac Disorders: No CVA: No COPD: No CHF: No Dementia: No Diabetes: No GI Disorders: Yes Disorders: No HTN: No Hypercholesterolemia: Yes Liver Disease: No Seizures: No Thyroid Disease: No - Surgical History Abdominal Surgery: No Cardiac Surgery: No Cholecystectomy: Yes GI Surgery: Yes (GASTRIC BYPASS) Lung Surgery: No Neurologic Surgery: No Orthopedic Surgery: No - Reproductive History Is Patient Now?: No - Immunization History Immunization Up to Date: Yes - Psycho-Social/Smoking History Smoking History: Never smoked Have you smoked in the past 12 months: No Information on smoking cessation initiated: No - Substance Abuse Hx (Audit-C & DAST Scrn) How often the patient has a drink containing alcohol: Never Score: In Men: 4 or > Positive; In Women: 3 or > Positive: 0 Screen Result (Pos requires Nsg. Audit-10AR): Negative In the last yr the pt used illegal drug/Rx for NonMed reason: No Score: Yes response is considered Positive: 0 Screen Result (Positive result requires Nsg. DAST-10): Negative Review of Systems - Review of Systems HEENTM: No: Eye Pain, Blurred Vision *Physical Exam - Vital Signs Last Vital Signs Temp Pulse Resp BP Pulse Ox 98.4 F 74 18 122/67 98 11/27/19 08:57 11/27/19 08:57 11/27/19 08:57 11/27/19 08:57 11/27/19 08:57 - Physical Exam General Appearance: Yes: Appropriately Dressed. No: Apparent Distress HEENT: positive: Normal Voice, Other (minimal edema to L eyelid w/ some ttp, no sig erythema, no warmth, no lid lesions, conjunc clear) Neck: positive: Supple Respiratory/Chest: negative: Respiratory Distress Integumentary: positive: Dry, Warm Neurologic: positive: Fully Oriented, Alert, Normal Mood/Affect Medical Decision Making - Medical Decision Making 11/27/19 09:26 54 yo F, no sig hx, here w/ L eyelid swelling and itching x several days. see exam L eye edema c/w allergy Dc w/ basic eye care, compress, OTC claritin, refrain from rubbing eyes To return as needed Discharge - Discharge Information Problems reviewed: Yes Clinical Impression/Diagnosis: Edema eyelid Qualifiers: Laterality: left Qualified Code(s): H02.846 - Edema of left eye, unspecified eyelid Condition: Stable Disposition: HOME - Follow up/Referral - Patient Discharge Instructions Patient Printed Discharge Instructions: DI for Eye Allergic Reaction Additional Instructions: Apply cool compresses frequently throughout the day and take claritin or zyrtec daily as needed Refrain from rubbing eye as can worsen condition - Post Discharge Activity
== END 2019-11-27 09:26 | disposition home or self-care (01) ==
LOC: JERFT 08:55
DX: H02.846 Edema of left eye, unspecified eyelid (principal)
CPT/HCPCS: 99283-25

== ENCOUNTER 2020-11-28 23:36 | Emergency (ER) | payer OTHER ==
[2020-11-28 23:50] VITALS: BP 132/84; PULSE 93; TEMP 97.6; BMI 48.4
[2020-11-29 00:50] LABS: BASO % 0.6 % (0-2.0); EOS % 4.5 % (0-4.5); HEMATOCRIT 35.2 % (32.4-45.2); HEMOGLOBIN 11.4 GM/dL (10.7-15.3); LYMPH % 24.4 % (8-40); MCH 23.4 pg (25.7-33.7); MCHC 32.5 g/dl (32.0-36.0); MEAN PLT VOLUME 9.4 fl (7.5-11.1); MONO % 6.5 % (3.8-10.2); PLATELET COUNT 190 10^3/uL (134-434); RBC 4.89 M/mm3 (3.60-5.2); RDW 18.7 % (11.6-15.6); WHITE BLOOD COUNT 6.7 K/mm3 (4.0-10.0)
[2020-11-29 01:15] LABS: CHLORIDE 110 mmol/L (98-107); SODIUM 145 mmol/L (136-145)
[2020-11-29 01:17] LABS: ALBUMIN 3.3 g/dl (3.4-5.0); ANION GAP 7 MMOL/L (8-16); BLOOD UREA NITROGEN 12.2 mg/dL (7-18); CALCIUM 8.5 mg/dL (8.5-10.1); CO2 27 mmol/L (21-32)
[2020-11-29 01:18] LABS: GLUCOSE,RANDOM 110 mg/dL (74-106)
[2020-11-29 01:20] LABS: SGPT/ALT 27 U/L (13-61)
[2020-11-29 01:21] LABS: CREATININE 0.7 mg/dL (0.55-1.3); SGOT/AST 19 U/L (15-37)
[2020-11-29 01:22] LABS: BILIRUBIN,TOTAL 0.2 mg/dL (0.2-1); TOT PROT 6.9 g/dl (6.4-8.2)
[2020-11-29 01:23] LABS: ALK PHOS 117 U/L (45-117)
== END 2020-11-29 03:25 | disposition home or self-care (01) ==
LOC: JER 23:36
DX: M94.0 Chondrocostal junction syndrome [Tietze] (principal)
CPT/HCPCS: 36415; 71045-TC-FY; 80053; 82550; 84484; 85025; 93005; 93010; 99285-25; C9803; U0003; U0005

== ENCOUNTER 2021-08-24 15:19 | Emergency (ER) | payer OTHER ==
[2021-08-24 15:47] VITALS: BP 142/85; PULSE 93; TEMP 98.2; BMI 46.7
[2021-08-24] MEDS ORDERED: diazePAM 5 MG TABLET PO ONE (16:46)
[2021-08-24] MEDS ORDERED: KETOROLAC TROMETHAMINE 30 MG/1 ML VIAL IM ONE (16:46)
[2021-08-24] MEDS ORDERED: LIDOCAINE 5% TOPICAL PATCH TP ONE (16:46)
[2021-08-24] MEDS ORDERED: KETOROLAC TROMETHAMINE 30 MG/1 ML VIAL ONE (16:58)
[2021-08-24] MEDS ORDERED: LIDOCAINE 5% TOPICAL PATCH ONE (16:58)
[2021-08-24] MEDS ORDERED: diazePAM 5 MG TABLET ONE (16:58)
[2021-08-25] MEDS ORDERED: LIDOCAINE PATCH REMOVAL MC SCH (05:00)
== END 2021-08-24 17:34 | disposition home or self-care (01) ==
LOC: JERFT 15:19
PROC: 3E0233Z Introduction of Anti-inflammatory into Muscle, Percutaneous Approach (ICD-10-PCS; principal; 2021-08-24)
DX: M54.42 Lumbago with sciatica, left side (principal)
CPT/HCPCS: 96372; 99284-25

== ENCOUNTER 2021-08-26 15:50 | Emergency (ER) | payer OTHER ==
[2021-08-26 16:10] VITALS: BP 133/84; PULSE 90; TEMP 98.4; BMI 49.9
[2021-08-26] MEDS ORDERED: predniSONE 20 MG TABLET (UD) PO ONE (17:57)
[2021-08-26] MEDS ORDERED: predniSONE 20 MG TABLET (UD) ONE (17:59)
== END 2021-08-26 20:26 | disposition home or self-care (01) ==
LOC: JER 15:50
DX: M51.16 Intervertebral disc disorders with radiculopathy, lumbar region (principal)
CPT/HCPCS: 72131-TC; 99284-25

== ENCOUNTER 2022-11-25 20:05 | Emergency (ER) | payer OTHER ==
[2022-11-25 20:15] VITALS: BMI 48.0
[2022-11-25] MEDS ORDERED: ACETAMINOPHEN 1000 MG/100 ML BAG IVPB ONE (20:43)
[2022-11-25] MEDS ORDERED: FAMOTIDINE 20 MG/50 ML IVPB 20 MG/50 ML MG IVPB ONE ×2 (20:56→21:22)
[2022-11-25] MEDS ORDERED: MAG HYDROX/AL HYDROX/SIMETH -MYLANTA- ORAL SUSPENSION PO ONE (20:56)
[2022-11-25] MEDS ORDERED: ONDANSETRON 4 MG/2 ML VIAL IVPUSH ONE (20:56)
[2022-11-25] MEDS ORDERED: KETOROLAC TROMETHAMINE 15 MG/ML VIAL IVPUSH ONE (20:59)
[2022-11-25] MEDS ORDERED: MAGNESIUM HYDROX 2400MG/30ML ORAL SUSPENSION 30 ML CUP ONE (21:21)
[2022-11-25] MEDS ORDERED: ACETAMINOPHEN INJECTION 100 ML IVPB ONE (21:21)
[2022-11-25] MEDS ORDERED: ONDANSETRON 4 MG/2 ML VIAL ONE (21:22)
[2022-11-25] MEDS ORDERED: KETOROLAC TROMETHAMINE 15 MG/ML VIAL ONE (21:22)
[2022-11-25] MEDS ORDERED: MAG HYDROX/AL HYDROX/SIMETH 30 ML UNIT-DOSE CUP ONE (21:31)
[2022-11-25 21:32] LABS: BASO % 0.9 % (0-2.0); HEMATOCRIT 38.6 % (32.4-45.2); HEMOGLOBIN 12.5 GM/dL (10.7-15.3); LYMPH % 24.7 % (8-40); MCH 24.6 pg (25.7-33.7); MCHC 32.5 g/dl (32.0-36.0); MEAN CELL VOLUME 75.9 fl (80-96); MEAN PLT VOLUME 9.9 fl (7.5-11.1); MONO % 5.8 % (3.8-10.2); NEUT % 63.6 % (42.8-82.8); PLATELET COUNT 192 10^3/uL (134-434); RBC 5.09 M/mm3 (3.60-5.2); RDW 17.4 % (11.6-15.6); WHITE BLOOD COUNT 7.4 K/mm3 (4.0-10.0)
[2022-11-25 21:39] LABS: INR 1.06 (0.83-1.09); PROTHROMBIN TIME (PATIENT) 12.3 SEC (9.7-13.0)
[2022-11-25 21:41] LABS: POTASSIUM 4.6 mmol/L (3.5-5.1)
[2022-11-25 21:42] LABS: ACTIVATED PTT 34.2 SECONDS (25.2-36.5)
[2022-11-25 21:43] LABS: CALCIUM 8.7 mg/dL (8.5-10.1)
[2022-11-25 21:44] LABS: ALBUMIN 3.5 g/dl (3.4-5.0); BLOOD UREA NITROGEN 12.5 mg/dL (7-18)
[2022-11-25 21:47] LABS: CREATININE 0.7 mg/dL (0.55-1.3)
[2022-11-25 21:49] LABS: BILIRUBIN,TOTAL 0.2 mg/dL (0.2-1); TOT PROT 7.2 g/dl (6.4-8.2)
[2022-11-25 23:17] VITALS: BP 119/76; PULSE 66; RESP 20; TEMP 97.9
== END 2022-11-26 00:01 | disposition home or self-care (01) ==
LOC: JER 20:05
PROC: 3E033GC Introduction of Other Therapeutic Substance into Peripheral Vein, Percutaneous Approach (ICD-10-PCS; principal; 2022-11-25)
PROC: 3E033NZ Introduction of Analgesics, Hypnotics, Sedatives into Peripheral Vein, Percutaneous Approach (ICD-10-PCS; 2022-11-25)
PROC: 3E0333Z Introduction of Anti-inflammatory into Peripheral Vein, Percutaneous Approach (ICD-10-PCS; 2022-11-25)
PROC: 3E033GC Introduction of Other Therapeutic Substance into Peripheral Vein, Percutaneous Approach (ICD-10-PCS; 2022-11-25)
DX: R07.89 Other chest pain (principal); R11.10 Vomiting, unspecified
CPT/HCPCS: 36415; 71045-TC-FY; 80053; 84484; 85025; 85610; 85730; 93005; 93010; 96365; 96375; 99285-25

== ENCOUNTER 2022-12-01 13:26 | Emergency (ER) | payer OTHER ==
[2022-12-01 13:31] VITALS: BMI 48.9
[2022-12-01] MEDS ORDERED: ACETAMINOPHEN 325 MG TABLET (FP) PO ONE (14:40)
[2022-12-01] MEDS ORDERED: IBUPROFEN 600 MG TABLET (FP) PO ONE (14:40)
[2022-12-01] MEDS ORDERED: BENZONATATE 200 MG CAPSULE PO ONE (14:42)
[2022-12-01] MEDS ORDERED: KETOROLAC TROMETHAMINE 15 MG/ML VIAL IVPUSH ONE (14:49)
[2022-12-01] MEDS ORDERED: ACETAMINOPHEN 325 MG TABLET (FP) ONE (15:08)
[2022-12-01 15:12] VITALS: BP 166/68; PULSE 72; RESP 19; TEMP 97.9
[2022-12-01 15:18] LABS: EOS % 9.2 % (0-4.5); HEMOGLOBIN 12.8 GM/dL (10.7-15.3); MCH 24.2 pg (25.7-33.7); MCHC 31.1 g/dl (32.0-36.0); MEAN CELL VOLUME 77.6 fl (80-96); MEAN PLT VOLUME 10.5 fl (7.5-11.1); MONO % 6.4 % (3.8-10.2); NEUT % 65.4 % (42.8-82.8); PLATELET COUNT 186 10^3/uL (134-434); RBC 5.28 M/mm3 (3.60-5.2); RDW 17.2 % (11.6-15.6); WHITE BLOOD COUNT 7.1 K/mm3 (4.0-10.0)
[2022-12-01 15:45] LABS: POTASSIUM 4.8 mmol/L (3.5-5.1)
[2022-12-01 15:47] LABS: BLOOD UREA NITROGEN 7.8 mg/dL (7-18); CALCIUM 8.8 mg/dL (8.5-10.1)
[2022-12-01 15:51] LABS: CREATININE 0.6 mg/dL (0.55-1.3)
== END 2022-12-01 17:32 | disposition home or self-care (01) ==
LOC: JERFT 13:26
PROC: 3E033NZ Introduction of Analgesics, Hypnotics, Sedatives into Peripheral Vein, Percutaneous Approach (ICD-10-PCS; principal; 2022-12-01)
DX: R07.89 Other chest pain (principal); R05.9 Cough, unspecified; R09.81 Nasal congestion; R51.9 Headache, unspecified; J32.9 Chronic sinusitis, unspecified; Z20.822 Contact with and (suspected) exposure to COVID-19
CPT/HCPCS: 0241U-QW; 26055; 36415; 71250-TC; 80048; 85025; 99284-25

== ENCOUNTER 2023-03-26 20:05 | Emergency (ER) | payer OTHER ==
[2023-03-26 20:12] VITALS: BP 147/83; PULSE 98; RESP 18; TEMP 98.7; BMI 48.5
[2023-03-26] MEDS ORDERED: ACETAMINOPHEN 500 MG TABLET (FP) PO ONE (20:28)
[2023-03-26] MEDS ORDERED: KETOROLAC TROMETHAMINE 30 MG/1 ML VIAL IM ONE (20:28)
[2023-03-26] MEDS ORDERED: SULFAMETHOXAZOLE/TRIMETHOPRIM 800MG/160MG D.S. TABLET PO ONE (20:29)
[2023-03-26] MEDS ORDERED: SULFAMETHOXAZOLE/TRIMETHOPRIM 800MG/160MG D.S. TABLET ONE (20:42)
[2023-03-26] MEDS ORDERED: ACETAMINOPHEN 500 MG TABLET (FP) ONE (20:42)
[2023-03-26] MEDS ORDERED: KETOROLAC TROMETHAMINE 30 MG/1 ML VIAL ONE (20:42)
== END 2023-03-26 20:48 | disposition home or self-care (01) ==
LOC: JERFT 20:05
PROC: 3E0233Z Introduction of Anti-inflammatory into Muscle, Percutaneous Approach (ICD-10-PCS; principal; 2023-03-26)
DX: L03.114 Cellulitis of left upper limb (principal); K08.89 Other specified disorders of teeth and supporting structures
CPT/HCPCS: 96372; 99284-25

== ENCOUNTER 2023-03-29 02:25 | Observation (INO) | payer OTHER ==
[2023-03-29] MEDS ORDERED: VANCOMYCIN 1,000 MG in DEXTROSE 5%-WATER - 250 ML IVPB ONE (02:56)
[2023-03-29] MEDS ORDERED: ACETAMINOPHEN 1000 MG/100 ML BAG IVPB ONE (02:57)
[2023-03-29] MEDS ORDERED: ACETAMINOPHEN INJECTION 100 ML IVPB ONE (03:17)
[2023-03-29] MEDS ORDERED: VANCOMYCIN 1 GRAM (PRE-DOCKED) 1,000 MG/250 ML BAG IVPB ONE ×2 (03:17→14:37)
[2023-03-29 03:38] LABS: POTASSIUM 4.5 mmol/L (3.5-5.1)
[2023-03-29 03:40] LABS: CALCIUM 7.9 mg/dL (8.5-10.1)
[2023-03-29 03:41] LABS: ALBUMIN 3.3 g/dl (3.4-5.0); BLOOD UREA NITROGEN 12.5 mg/dL (7-18)
[2023-03-29 03:44] LABS: CREATININE 0.7 mg/dL (0.55-1.3)
[2023-03-29 03:45] LABS: BILIRUBIN,TOTAL 0.2 mg/dL (0.2-1); TOT PROT 7.1 g/dl (6.4-8.2)
[2023-03-29] MEDS ORDERED: CLINDAMYCIN 600MG PREMIX IVPB 600 MG/50 ML BAG IVPB ONE ×3 (03:54→11:30)
[2023-03-29] MEDS ORDERED: FLUCONAZOLE 200 MG/NS 100 ML IVPB ONE ×2 (03:55→04:15)
[2023-03-29 04:04] LABS: BASO % 0.6 % (0-2.0); EOS % 8.8 % (0-4.5); HEMATOCRIT 37.9 % (32.4-45.2); HEMOGLOBIN 12.2 GM/dL (10.7-15.3); LYMPH % 21.5 % (8-40); MCH 24.7 pg (25.7-33.7); MCHC 32.3 g/dl (32.0-36.0); MEAN CELL VOLUME 76.5 fl (80-96); MEAN PLT VOLUME 10.1 fl (7.5-11.1); MONO % 8.2 % (3.8-10.2); NEUT % 60.9 % (42.8-82.8); PLATELET COUNT 222 10^3/uL (134-434); RBC 4.95 M/mm3 (3.60-5.2); RDW 16.7 % (11.6-15.6); WHITE BLOOD COUNT 5.8 K/mm3 (4.0-10.0)
[2023-03-29] MEDS ORDERED: METHOCARBAMOL 500 MG TABLET PO PRN (05:40)
[2023-03-29] MEDS ORDERED: LIDOCAINE 5% TOPICAL PATCH TP PRN (05:40)
[2023-03-29] MEDS ORDERED: ALBUTEROL SO4 HFA INHALER IH PRN (05:40)
[2023-03-29] MEDS ORDERED: ACETAMINOPHEN 1000 MG/100 ML BAG IVPB PRN (05:41)
[2023-03-29 08:50] LABS: ERYTHROCYTE SEDIMENTATION RATE 31 mm/hr (0-30)
[2023-03-29] MEDS ORDERED: ENOXAPARIN NA (PORCINE) 40 MG/0.4 ML DISP.SYRIN SQ SCH ×2 (10:00)
[2023-03-29] MEDS ORDERED: CLINDAMYCIN 600MG PREMIX IVPB 600 MG/50 ML BAG IVPB SCH (10:00)
[2023-03-29] MEDS: NYSTATIN 100,000 UNIT/GM TOPICAL CREAM 15 GM TUBE TP SCH ×3 (10:30→19:30)
[2023-03-29] MEDS: LORATADINE 10 MG TABLET PO SCH (10:30)
[2023-03-29] MEDS ORDERED: CEFTRIAXONE 2 GM/100 ML BAG IVPB ONE (14:02)
[2023-03-29] MEDS: CEFTRIAXONE 2 GM in DEXTROSE 5%-WATER 100 ML IVPB SCH (14:04)
[2023-03-29] MEDS: VANCOMYCIN/WATER FOR INJ (PEG) 1,000 MG/200 ML BAG IVPB SCH (14:46)
[2023-03-29 18:16] VITALS: BMI 50.0
[2023-03-29] MEDS: ENOXAPARIN NA (PORCINE) 40 MG/0.4 ML DISP.SYRIN SQ SCH (18:54)
[2023-03-29] MEDS: FLUTICASONE PROP 0.05% 16 GM NASAL SPRAY NS SCH ×2 (19:30→22:20)
[2023-03-29] MEDS ORDERED: PNEUMOC 20-VAL CONJ-DIP CRM/PF 0.5 ML SYRINGE IM ONE (20:00)
[2023-03-29] MEDS: LIDOCAINE PATCH REMOVAL MC SCH (22:21)
[2023-03-30] MEDS: NYSTATIN 100,000 UNIT/GM TOPICAL CREAM 15 GM TUBE TP SCH ×4 (00:12→17:08)
[2023-03-30] MEDS: VANCOMYCIN/WATER FOR INJ (PEG) 1,000 MG/200 ML BAG IVPB SCH ×2 (02:12→13:16)
[2023-03-30] MEDS: LORATADINE 10 MG TABLET PO SCH (09:39)
[2023-03-30] MEDS: ENOXAPARIN NA (PORCINE) 40 MG/0.4 ML DISP.SYRIN SQ SCH (09:39)
[2023-03-30] MEDS: CEFTRIAXONE 2 GM in DEXTROSE 5%-WATER 100 ML IVPB SCH (09:40)
[2023-03-30] MEDS: FLUTICASONE PROP 0.05% 16 GM NASAL SPRAY NS SCH ×2 (09:40→22:37)
[2023-03-30] MEDS: FLUCONAZOLE 100 MG TABLET (UD) PO SCH (09:40)
[2023-03-30] MEDS: LIDOCAINE PATCH REMOVAL MC SCH (22:38)
[2023-03-31] MEDS: NYSTATIN 100,000 UNIT/GM TOPICAL CREAM 15 GM TUBE TP SCH ×3 (00:05→11:11)
[2023-03-31] MEDS: VANCOMYCIN/WATER FOR INJ (PEG) 1,000 MG/200 ML BAG IVPB SCH (02:00)
[2023-03-31 08:55] LABS: BASO % 0.5 % (0-2.0); EOS % 6.8 % (0-4.5); HEMATOCRIT 37.5 % (32.4-45.2); HEMOGLOBIN 12.1 GM/dL (10.7-15.3); LYMPH % 30.6 % (8-40); MCH 24.5 pg (25.7-33.7); MCHC 32.4 g/dl (32.0-36.0); MEAN CELL VOLUME 75.7 fl (80-96); MEAN PLT VOLUME 9.7 fl (7.5-11.1); MONO % 7.6 % (3.8-10.2); NEUT % 54.5 % (42.8-82.8); PLATELET COUNT 218 10^3/uL (134-434); RBC 4.95 M/mm3 (3.60-5.2); RDW 16.4 % (11.6-15.6); WHITE BLOOD COUNT 5.4 K/mm3 (4.0-10.0)
[2023-03-31 10:12] LABS: POTASSIUM 4.2 mmol/L (3.5-5.1)
[2023-03-31 10:18] LABS: CALCIUM 8.5 mg/dL (8.5-10.1)
[2023-03-31 10:19] LABS: BLOOD UREA NITROGEN 11.8 mg/dL (7-18); MAGNESIUM 2.4 mg/dL (1.8-2.4)
[2023-03-31 10:22] LABS: CREATININE 0.6 mg/dL (0.55-1.3)
[2023-03-31 10:23] LABS: TOT PROT 6.8 g/dl (6.4-8.2)
[2023-03-31 10:25] LABS: BILIRUBIN,TOTAL 0.3 mg/dL (0.2-1)
[2023-03-31] MEDS: ENOXAPARIN NA (PORCINE) 40 MG/0.4 ML DISP.SYRIN SQ SCH (11:10)
[2023-03-31] MEDS: FLUTICASONE PROP 0.05% 16 GM NASAL SPRAY NS SCH (11:10)
[2023-03-31] MEDS: LORATADINE 10 MG TABLET PO SCH (11:10)
[2023-03-31] MEDS: FLUCONAZOLE 100 MG TABLET (UD) PO SCH (11:23)
[2023-03-31 12:19] VITALS: BP 140/82; PULSE 83; RESP 19; TEMP 98
[2023-03-31] MEDS: CEFTRIAXONE 2 GM in DEXTROSE 5%-WATER 100 ML IVPB SCH (12:43)
[2023-03-31] MEDS ORDERED: AMOX TR/POT CLAV 875MG/125MG TABLETS (FP) PO SCH (17:30)
== END 2023-03-31 14:07 | disposition home or self-care (01) ==
LOC: JER 02:25 → UNDOADMOB 02:55 → INTOOBSV 02:55 → JERBED 02:55 → J8W 15:33 → JERBED 15:33 → J8W 03-31 10:52
PROVIDERS: ADMIT Internal Medicine; ATTEND Nurse Practitioner Acute Care
PROC: 3E033NZ Introduction of Analgesics, Hypnotics, Sedatives into Peripheral Vein, Percutaneous Approach (ICD-10-PCS; principal; 2023-03-31)
PROC: 3E03329 Introduction of Other Anti-infective into Peripheral Vein, Percutaneous Approach (ICD-10-PCS; 2023-03-31)
PROC: 3E023GC Introduction of Other Therapeutic Substance into Muscle, Percutaneous Approach (ICD-10-PCS; 2023-03-31)
PROC: 3E03329 Introduction of Other Anti-infective into Peripheral Vein, Percutaneous Approach (ICD-10-PCS; 2023-03-31)
PROC: 3E023GC Introduction of Other Therapeutic Substance into Muscle, Percutaneous Approach (ICD-10-PCS; 2023-03-31)
DX: L03.112 Cellulitis of left axilla (principal); I87.2 Venous insufficiency (chronic) (peripheral); M54.50 Low back pain, unspecified; G89.29 Other chronic pain; E66.01 Morbid (severe) obesity due to excess calories; Z68.43 Body mass index [BMI] 50.0-59.9, adult; Z98.84 Bariatric surgery status; J45.909 Unspecified asthma, uncomplicated; Z90.49 Acquired absence of other specified parts of digestive tract; Z23 Encounter for immunization
CPT/HCPCS: 36415; 73201-TC-RT; 80053; 83735; 85025; 85651; 86140; 87040; 87081; 90677; 93005; 93010; 96365; 96366; 96367; 96372; 99285-25; G0378; Q9967

== ENCOUNTER 2023-04-28 04:18 | Observation (INO) | payer OTHER ==
[2023-04-28] MEDS ORDERED: ACETAMINOPHEN 500 MG TABLET (FP) PO ONE (04:42)
[2023-04-28] MEDS ORDERED: ACETAMINOPHEN 325 MG TABLET (FP) ONE (04:45)
[2023-04-28 04:48] VITALS: BMI 49.8
[2023-04-28] MEDS ORDERED: MAG HYDROX/AL HYDROX/SIMETH 30 ML UNIT-DOSE CUP PO ONE (05:09)
[2023-04-28 05:13] LABS: BASO % 0.9 % (0-2.0); EOS % 4.2 % (0-4.5); LYMPH % 21.8 % (8-40); MCH 24.1 pg (25.7-33.7); MCHC 31.6 g/dl (32.0-36.0); MEAN CELL VOLUME 76.2 fl (80-96); MEAN PLT VOLUME 9.6 fl (7.5-11.1); MONO % 5.9 % (3.8-10.2); NEUT % 67.2 % (42.8-82.8); PLATELET COUNT 196 10^3/uL (134-434); RBC 4.98 M/mm3 (3.60-5.2); RDW 16.6 % (11.6-15.6); WHITE BLOOD COUNT 7.9 K/mm3 (4.0-10.0)
[2023-04-28 05:14] LABS: INR 0.97 (0.83-1.09); PROTHROMBIN TIME (PATIENT) 11.3 SEC (9.7-13.0)
[2023-04-28 05:26] LABS: CHLORIDE 108 mmol/L (98-107); POTASSIUM 4.4 mmol/L (3.5-5.1); SODIUM 142 mmol/L (136-145)
[2023-04-28 05:28] LABS: ALBUMIN 3.1 g/dl (3.4-5.0); ANION GAP 5 mmol/L (4-13); BLOOD UREA NITROGEN 14.2 mg/dL (7-18); CALCIUM 8.6 mg/dL (8.5-10.1); CO2 29 mmol/L (21-32); GLUCOSE,RANDOM 119 mg/dL (74-106)
[2023-04-28 05:31] LABS: CREATININE 0.6 mg/dL (0.55-1.3); SGOT/AST 15 U/L (15-37); SGPT/ALT 21 U/L (13-61)
[2023-04-28 05:33] LABS: BILIRUBIN,TOTAL < 0.1 mg/dL (0.2-1); TOT PROT 6.9 g/dl (6.4-8.2)
[2023-04-28 05:34] LABS: ALK PHOS 110 U/L (45-117)
[2023-04-28] MEDS ORDERED: MAG HYDROX/AL HYDROX/SIMETH 30 ML UNIT-DOSE CUP ONE (05:58)
[2023-04-28] MEDS ORDERED: ASPIRIN 81 MG CHEWABLE TABLETS PO ONE (07:46)
[2023-04-28] MEDS ORDERED: KETOROLAC TROMETHAMINE 15 MG/ML VIAL IVPUSH ONE (07:47)
[2023-04-28 07:49] LABS: N-TERMINAL BNP 44.4 pg/ml (5-125)
[2023-04-28] MEDS ORDERED: KETOROLAC TROMETHAMINE 15 MG/ML VIAL ONE (08:00)
[2023-04-28] MEDS ORDERED: ACETAMINOPHEN INJECTION 100 ML IVPB ONE (08:34)
[2023-04-28] MEDS ORDERED: IBUPROFEN 800 MG/8 ML IJ IVPB PRN (13:35)
[2023-04-28] MEDS ORDERED: ALBUTEROL SO4 HFA INHALER IH PRN (13:35)
[2023-04-28] MEDS ORDERED: LIDOCAINE 4% PATCH TP ONE (13:49)
[2023-04-28] MEDS: LIDOCAINE 4% PATCH TP SCH (13:53)
[2023-04-28] MEDS ORDERED: IBUPROFEN 800 MG/8 ML IJ IVPB ONE (20:57)
[2023-04-28] MEDS ORDERED: LIDOCAINE PATCH REMOVAL MC SCH (22:00)
[2023-04-29] MEDS ORDERED: IBUPROFEN 800 MG/8 ML IJ IVPB ONE (02:49)
[2023-04-29] MEDS ORDERED: ALBUTEROL SO4 HFA INHALER IH ONE (02:56)
[2023-04-29 09:02] LABS: BASO % 0.5 % (0-2.0); HEMOGLOBIN 11.5 GM/dL (10.7-15.3); LYMPH % 21.3 % (8-40); MCH 24.3 pg (25.7-33.7); MEAN CELL VOLUME 75.9 fl (80-96); MEAN PLT VOLUME 10.1 fl (7.5-11.1); MONO % 5.6 % (3.8-10.2); NEUT % 67.6 % (42.8-82.8); PLATELET COUNT 197 10^3/uL (134-434); RBC 4.74 M/mm3 (3.60-5.2); RDW 16.8 % (11.6-15.6)
[2023-04-29 09:14] LABS: POTASSIUM 4.3 mmol/L (3.5-5.1)
[2023-04-29 09:20] LABS: BLOOD UREA NITROGEN 15.3 mg/dL (7-18); CALCIUM 8.6 mg/dL (8.5-10.1); MAGNESIUM 2.1 mg/dL (1.8-2.4)
[2023-04-29 09:22] LABS: PHOSPHOROUS 3.5 mg/dL (2.5-4.9)
[2023-04-29 09:23] LABS: BILIRUBIN,TOTAL 0.2 mg/dL (0.2-1); CREATININE 0.5 mg/dL (0.55-1.3)
[2023-04-29 09:24] LABS: CHOLESTEROL 159 mg/dL (50-200); TOT PROT 6.6 g/dl (6.4-8.2)
[2023-04-29 09:26] LABS: LDL CHOLESTEROL (ONLY SJRH) 99 mg/dL (5-100)
[2023-04-29 09:27] LABS: HDL CHOLESTEROL 36 mg/dL (40-60)
[2023-04-29] MEDS ORDERED: ENOXAPARIN NA (PORCINE) 40 MG/0.4 ML DISP.SYRIN SQ SCH (10:00)
[2023-04-29] MEDS ORDERED: PANTOPRAZOLE SODIUM 40 MG VIAL IVPUSH SCH (10:00)
[2023-04-29] MEDS ORDERED: PANTOPRAZOLE SODIUM 40 MG VIAL ONE (10:29)
[2023-04-29] MEDS ORDERED: LIDOCAINE 4% PATCH TP ONE (10:29)
[2023-04-29] MEDS ORDERED: ENOXAPARIN NA (PORCINE) 40 MG/0.4 ML DISP.SYRIN SQ ONE (10:29)
[2023-04-29] MEDS: LIDOCAINE 4% PATCH TP SCH (10:36)
[2023-04-29 14:54] VITALS: BP 128/73; PULSE 86; RESP 19; TEMP 98
== END 2023-04-29 16:13 | disposition home or self-care (01) ==
LOC: JER 04:18 → JERBED 12:32
PROVIDERS: ADMIT Internal Medicine; ATTEND Family Medicine
PROC: 3E023GC Introduction of Other Therapeutic Substance into Muscle, Percutaneous Approach (ICD-10-PCS; principal; 2023-04-28)
PROC: 3E033GC Introduction of Other Therapeutic Substance into Peripheral Vein, Percutaneous Approach (ICD-10-PCS; 2023-04-28)
PROC: 3E0333Z Introduction of Anti-inflammatory into Peripheral Vein, Percutaneous Approach (ICD-10-PCS; 2023-04-28)
DX: J06.9 Acute upper respiratory infection, unspecified (principal); R07.89 Other chest pain; J45.909 Unspecified asthma, uncomplicated; E66.9 Obesity, unspecified; Z98.84 Bariatric surgery status; Z90.49 Acquired absence of other specified parts of digestive tract; M94.0 Chondrocostal junction syndrome [Tietze]; Z29.89 Encounter for other specified prophylactic measures; E11.9 Type 2 diabetes mellitus without complications; I10 Essential (primary) hypertension; R09.89 Other specified symptoms and signs involving the circulatory and respiratory systems
CPT/HCPCS: 0241U-QW; 36415; 70450-TC; 71045-TC-FY; 72125-TC; 80053; 80061; 82550; 83036; 83735; 83880; 84100; 84484; 85025; 85610; 85730; 93005; 93010; 96372; 96374; 96375; 99285-25; G0378

== ENCOUNTER 2023-11-16 23:21 | Emergency (ER) | payer OTHER ==
[2023-11-16 23:38] VITALS: TEMP 97.8; BMI 48.0
[2023-11-17] MEDS ORDERED: KETOROLAC TROMETHAMINE 30 MG/1 ML VIAL ONE (04:58)
[2023-11-17] MEDS: KETOROLAC TROMETHAMINE 30 MG/1 ML VIAL IVPUSH ONE (05:13)
[2023-11-17 05:38] LABS: BASO % 0.8 % (0-2.0); EOS % 3.2 % (0-4.5); HEMATOCRIT 36.7 % (32.4-45.2); HEMOGLOBIN 11.8 GM/dL (10.7-15.3); LYMPH % 22.8 % (8-40); MCH 24.2 pg (25.7-33.7); MCHC 32.1 g/dl (32.0-36.0); MEAN CELL VOLUME 75.4 fl (80-96); MEAN PLT VOLUME 9.7 fl (7.5-11.1); MONO % 5.8 % (3.8-10.2); NEUT % 67.4 % (42.8-82.8); PLATELET COUNT 214 10^3/uL (134-434); RBC 4.87 M/mm3 (3.60-5.2); RDW 18.1 % (11.6-15.6); WHITE BLOOD COUNT 7.7 K/mm3 (4.0-10.0)
[2023-11-17 06:16] LABS: POTASSIUM 4.4 mmol/L (3.5-5.1)
[2023-11-17 06:17] LABS: CALCIUM 8.6 mg/dL (8.5-10.1)
[2023-11-17 06:18] LABS: BLOOD UREA NITROGEN 11.8 mg/dL (7-18)
[2023-11-17 06:21] LABS: CREATININE 0.7 mg/dL (0.55-1.3)
[2023-11-17 09:02] VITALS: BP 121/48; PULSE 72; RESP 16
== END 2023-11-17 09:23 | disposition admitted as inpatient to this hospital (09) ==
LOC: JER 23:21
PROC: 3E0333Z Introduction of Anti-inflammatory into Peripheral Vein, Percutaneous Approach (ICD-10-PCS; principal; 2023-11-17)
DX: M25.361 Other instability, right knee (principal); E66.01 Morbid (severe) obesity due to excess calories; M25.562 Pain in left knee; Z68.43 Body mass index [BMI] 50.0-59.9, adult
CPT/HCPCS: 36415; 73700-TC-RT; 80048; 85025; 99284-25